=== PATIENT | female | born 1980 | race African-American/Black ===

== ENCOUNTER 2018-02-10 09:08 | Emergency (ER) | payer SELFPAY ==
[~2018-02-10] VITALS: Ht 180.3 cm; Wt 97.0 kg
[2018-02-10 09:48] VITALS: BP 119/79
== END 2018-02-10 09:55 | disposition home or self-care (01) | DRG 605 ==
LOC: ED 09:08
PROC: 0HQ1XZZ Repair Face Skin, External Approach (ICD-10-PCS; principal; 2018-02-10)
DX: S01.81XA Laceration without foreign body of other part of head, initial encounter (principal); W26.8XXA Contact with other sharp object(s), not elsewhere classified, initial encounter; Y93.E9 Activity, other interior property and clothing maintenance; Y92.009 Unspecified place in unspecified non-institutional (private) residence as the place of occurrence of the external cause

== ENCOUNTER 2018-02-14 19:50 | Emergency (ER) | payer OTHER ==
[~2018-02-14] VITALS: Ht 180.3 cm; Wt 102.2 kg
[2018-02-14 20:37] LABS: URINE BILIRUBIN - DIPSTICK NEGATIVE (NEGATIVE); URINE BLOOD DIPSTICK LARGE (NEGATIVE); URINE GLUCOSE - DIPSTICK NEGATIVE (NEGATIVE); URINE KETONE 15 mg/dL (NEGATIVE); URINE PROTEIN - DIPSTICK >=300 mg/dL (NEG-TRACE)
[2018-02-14 20:39] LABS: URINE CLARITY TURBID; URINE LEUK ESTERASE MODERATE (NEGATIVE); URINE NITRITE - DIPSTICK POSITIVE (Negative)
[2018-02-14 20:40] LABS: URINE RBC TNTC RBC/hpf (0-5)
[2018-02-14 20:41] LABS: URINE COLOR BLOODY; URINE SQUAMOUS EPITHELIAL CELL FEW EPI/hpf (0-FEW)
[2018-02-14 23:00] VITALS: BP 133/80
[2018-02-14] MEDS ORDERED: ULTRAM50 M1 PO (23:03)
[2018-02-14] MEDS ORDERED: FLEXERIL PO (23:03)
== END 2018-02-14 23:15 | disposition home or self-care (01) | DRG 552 ==
LOC: ED 19:50
PROVIDERS: Emergency Medicine
DX: M51.9 Unspecified thoracic, thoracolumbar and lumbosacral intervertebral disc disorder (principal); F17.210 Nicotine dependence, cigarettes, uncomplicated; M54.5 Low back pain; W19.XXXA Unspecified fall, initial encounter; Y92.410 Unspecified street and highway as the place of occurrence of the external cause

== ENCOUNTER 2018-07-18 18:42 | Emergency (ER) | payer MEDICAID ==
[~2018-07-18] VITALS: Ht 180.3 cm; Wt 99.0 kg
[~2018-07-18 18:42] MED LIST: FLEXERIL PO; TYLENOL500 MG PO; ULTRAM50 M1 PO; VOLTAREN1%GEL TOP
[2018-07-18 19:46] LABS: URINE BILIRUBIN - DIPSTICK NEGATIVE (NEGATIVE); URINE BLOOD DIPSTICK NEGATIVE (NEGATIVE); URINE COLOR YELLOW; URINE GLUCOSE - DIPSTICK NEGATIVE (NEGATIVE); URINE KETONE NEGATIVE (NEGATIVE); URINE PROTEIN - DIPSTICK NEGATIVE (NEG-TRACE); URINE SPECIFIC GRAVITY >=1.030
[2018-07-18 19:47] LABS: URINE CLARITY SL CLOUDY; URINE LEUK ESTERASE SMALL (NEGATIVE); URINE NITRITE - DIPSTICK POSITIVE (Negative)
[2018-07-18 19:55] LABS: URINE SQUAMOUS EPITHELIAL CELL MANY EPI/hpf (0-FEW)
[2018-07-18 19:56] LABS: URINE BACTERIA RARE hpf
[2018-07-18 20:08] LABS: INFLUENZA A NONE DETECTED (NONE DETECT); INFLUENZA B NONE DETECTED (NONE DETECT)
[2018-07-18] MEDS ORDERED: ROBITUSSIN AC10 ML PO (20:22)
[2018-07-18] MEDS ORDERED: CEPHALEXIN500 M1 PO (20:22)
[2018-07-18 20:40] VITALS: BP 129/71
== END 2018-07-18 20:40 | disposition home or self-care (01) ==
LOC: ED 18:42
PROVIDERS: Emergency Medicine
DX: J06.9 Acute upper respiratory infection, unspecified (principal); N39.0 Urinary tract infection, site not specified; F17.210 Nicotine dependence, cigarettes, uncomplicated; B96.20 Unspecified Escherichia coli [E. coli] as the cause of diseases classified elsewhere; R05 Cough; J02.9 Acute pharyngitis, unspecified; R06.7 Sneezing

== ENCOUNTER 2018-11-11 19:37 | Emergency (ER) | payer OTHER ==
[~2018-11-11] VITALS: Ht 180.3 cm; Wt 107.0 kg
[~2018-11-11 19:37] MED LIST changes: +CEPHALEXIN500 M1 PO; +ROBITUSSIN AC10 ML PO
[2018-11-11 20:24] LABS: URINE BILIRUBIN - DIPSTICK NEGATIVE (NEGATIVE); URINE BLOOD DIPSTICK LARGE (NEGATIVE); URINE GLUCOSE - DIPSTICK NEGATIVE (NEGATIVE); URINE KETONE TRACE mg/dL (NEGATIVE); URINE LEUK ESTERASE NEGATIVE (NEGATIVE); URINE PROTEIN - DIPSTICK 100 mg/dL (NEG-TRACE); URINE SPECIFIC GRAVITY >=1.030
[2018-11-11 20:26] LABS: URINE COLOR ORANGE; URINE NITRITE - DIPSTICK POSITIVE (Negative)
[2018-11-11 20:30] LABS: HEMATOCRIT 36.7 % (37.0-47.0); HEMOGLOBIN 11.6 g/dl (12.0-16.0); IMMATURE GRANULOCYTES 0.3 % (0.0-5.0); MEAN CELL VOLUME 90.8 fL CALC (80.0-100.0); MEAN CORPUSCULAR HGB 28.7 pG CALC (26.0-32.0); MEAN CORPUSCULAR HGB CONC 31.6 g/L CALC (32.0-36.0); NEUT# 3.14 thou/uL (2.00-7.15); RED BLOOD COUNT 4.04 mill/uL (4.20-5.60); RED CELL DISTRI WIDTH 12.6 % (11.5-15.5)
[2018-11-11 20:34] LABS: URINE BACTERIA FEW hpf; URINE RBC TNTC RBC/hpf (0-5); URINE SQUAMOUS EPITHELIAL CELL FEW EPI/hpf (0-FEW)
[2018-11-11 20:40] LABS: ALBUMIN 4.9 g/dL (3.2-5.0); ALKALINE PHOSPHATASE 66 u/l (38-126); ANION GAP 16 (6-22 (CALC)); BILIRUBIN, TOTAL 0.3 mg/dL (0.0-1.4); BUN 15 mg/dL (7-17); BUN/CREATININE RATIO 22 (12-20 (CALC)); CARBON DIOXIDE 25 mmol/l (22-30); CHLORIDE 101 mmol/l (95-108); CREATININE 0.7 mg/dL (0.5-1.0); GFR > 60 ML/MIN (>=60 (CALC)); GFR FOR AFR.AMER. > 60 ML/MIN (>=60 (CALC)); POTASSIUM 3.7 mmol/l (3.5-5.1); SGOT/AST 43 u/l (14-36); SODIUM 138 mmol/l (137-146); TOTAL PROTEIN 8.7 g/dL (6.3-8.2)
[2018-11-11 20:56] LABS: BETA-HCG, QUANT(RESULT NUMBER) 12598 mIU/mL
[2018-11-11 21:50] VITALS: BP 112/65
== END 2018-11-11 21:49 | disposition home or self-care (01) ==
LOC: ED 19:37
DX: O20.9 Hemorrhage in early pregnancy, unspecified (principal); O99.331 Smoking (tobacco) complicating pregnancy, first trimester; F17.200 Nicotine dependence, unspecified, uncomplicated; Z3A.08 8 weeks gestation of pregnancy

== ENCOUNTER 2018-11-13 01:37 | Emergency (ER) | payer OTHER ==
[~2018-11-13] VITALS: Ht 180.3 cm; Wt 106.8 kg
[2018-11-13 02:12] LABS: IMMATURE GRANULOCYTES 0.4 % (0.0-5.0); MEAN CELL VOLUME 89.7 fL CALC (80.0-100.0); MEAN CORPUSCULAR HGB 28.2 pG CALC (26.0-32.0); MEAN CORPUSCULAR HGB CONC 31.4 g/L CALC (32.0-36.0); NEUT# 3.34 thou/uL (2.00-7.15); RED BLOOD COUNT 3.9 mill/uL (4.20-5.60); RED CELL DISTRI WIDTH 12.8 % (11.5-15.5)
[2018-11-13 02:25] LABS: ALBUMIN 4.3 g/dL (3.2-5.0); ALKALINE PHOSPHATASE 59 u/l (38-126); ANION GAP 14 (6-22 (CALC)); BILIRUBIN, TOTAL 0.3 mg/dL (0.0-1.4); BUN 15 mg/dL (7-17); BUN/CREATININE RATIO 20 (12-20 (CALC)); CARBON DIOXIDE 24 mmol/l (22-30); CHLORIDE 104 mmol/l (95-108); CREATININE 0.8 mg/dL (0.5-1.0); GFR > 60 ML/MIN (>=60 (CALC)); GFR FOR AFR.AMER. > 60 ML/MIN (>=60 (CALC)); POTASSIUM 4.3 mmol/l (3.5-5.1); SGOT/AST 26 u/l (14-36); SODIUM 138 mmol/l (137-146); TOTAL PROTEIN 7.7 g/dL (6.3-8.2)
[2018-11-13 02:41] LABS: BETA-HCG, QUANT(RESULT NUMBER) 11335 mIU/mL
[2018-11-13 03:54] VITALS: BP 103/68
[2018-11-13 04:30] VITALS: BP 88/60
[2018-11-13 04:37] VITALS: BP 88/60
[2018-11-24] MEDS ORDERED: PERCOCET 5/325M1 TAB PO (22:13)
[2018-11-24] MEDS ORDERED: AMOXICILLIN500 MG PO (22:13)
[2018-11-24] MEDS ORDERED: IBUPROFEN600 MG PO (22:13)
== END 2018-11-13 04:37 ==
LOC: ED 01:37
PROVIDERS: Emergency Medicine
DX: O03.9 Complete or unspecified spontaneous abortion without complication (principal); F17.210 Nicotine dependence, cigarettes, uncomplicated
CPT/HCPCS: P9016

== ENCOUNTER 2018-11-16 06:56 | Emergency (ER) | payer OTHER ==
[~2018-11-16] VITALS: Ht 180.3 cm; Wt 110.0 kg
[2018-11-16 07:35] LABS: IMMATURE GRANULOCYTES 0.9 % (0.0-5.0); MEAN CELL VOLUME 91.9 fL CALC (80.0-100.0); MEAN CORPUSCULAR HGB 29.4 pG CALC (26.0-32.0); MEAN CORPUSCULAR HGB CONC 31.9 g/L CALC (32.0-36.0); NEUT# 4.43 thou/uL (2.00-7.15); RED BLOOD COUNT 2.35 mill/uL (4.20-5.60); RED CELL DISTRI WIDTH 13.9 % (11.5-15.5)
[2018-11-16 07:41] LABS: HEMATOCRIT 21.6 % (37.0-47.0); HEMOGLOBIN 6.9 g/dl (12.0-16.0)
[2018-11-16 07:47] LABS: ANION GAP 10 (6-22 (CALC)); BUN 15 mg/dL (7-17); BUN/CREATININE RATIO 25 (12-20 (CALC)); CARBON DIOXIDE 24 mmol/l (22-30); CHLORIDE 108 mmol/l (95-108); CREATININE 0.6 mg/dL (0.5-1.0); GFR > 60 ML/MIN (>=60 (CALC)); GFR FOR AFR.AMER. > 60 ML/MIN (>=60 (CALC)); SODIUM 139 mmol/l (137-146)
[2018-11-16 07:48] LABS: POTASSIUM 3.4 mmol/l (3.5-5.1)
[2018-11-16 08:45] VITALS: BP 117/70
[2018-11-16 09:00] VITALS: BP 114/67
[2018-11-16 09:15] VITALS: BP 112/67
[2018-11-16 10:00] VITALS: BP 101/68
[2018-11-16 10:15] VITALS: BP 102/67
[2018-11-24] MEDS ORDERED: PERCOCET 5/325M1 TAB PO (22:13)
[2018-11-24] MEDS ORDERED: AMOXICILLIN500 MG PO (22:13)
[2018-11-24] MEDS ORDERED: IBUPROFEN600 MG PO (22:13)
== END 2018-11-16 10:20 | disposition home or self-care (01) ==
LOC: ED 06:56
PROVIDERS: Family Medicine
DX: D64.9 Anemia, unspecified (principal); G43.909 Migraine, unspecified, not intractable, without status migrainosus; R53.83 Other fatigue; F17.200 Nicotine dependence, unspecified, uncomplicated; R11.0 Nausea
CPT/HCPCS: P9016

== ENCOUNTER 2024-09-19 07:27 | Emergency (ER) | payer OTHER ==
[~2024-09-19] VITALS: Ht 180.3 cm; Wt 118.0 kg
[2024-09-19] VITALS (24 sets, daily range): BP systolic 109–148; BP diastolic 65–102
[~2024-09-19 07:27] MED LIST changes: +AMOXICILLIN500 MG PO; +BACTRIM DS1 TAB PO; +IBUPROFEN600 MG PO; +LORTAB 5/3255 MG PO; +PAXLOVID PO; +PERCOCET 5/321 COMBO PO; +PERCOCET 5/325M1 TAB PO
[2024-09-19] MEDS ORDERED: ASPIRIN 81 MG/TAB PO ONE (07:35)
[2024-09-19] MEDS ORDERED: SODIUM CHLORIDE 0.9% 1,000 ML IV ONE (07:40)
[2024-09-19] MEDS ORDERED: ADENOSINE 6MG (3 MG/ML) SYR IV ONE (07:45)
[2024-09-19] MEDS ORDERED: ONDANSETRON HCl 4 MG/2 ML SDV IV ONE (07:45)
[2024-09-19 07:56] LABS: BASO% 0.3 % (0-3); EOS% 2.2 % (0-8); IMMATURE GRANULOCYTES 0.2 % (0.0-5.0); LYMPH% 29.7 % (15-41); MEAN CELL VOLUME 89.2 fL CALC (80.0-100.0); MEAN CORPUSCULAR HGB 28.9 pG CALC (26.0-32.0); MEAN CORPUSCULAR HGB CONC 32.4 g/dL CAL (32.0-36.0); MONO% 6.9 % (2-13); NEUT# 3.59 thou/uL (2.00-7.15); NEUT% 60.7 % (42-76); RED BLOOD COUNT 5.02 mill/uL (4.20-5.60); RED CELL DISTRI WIDTH 12.6 % (11.5-15.5)
[2024-09-19 08:05] LABS: HEMATOCRIT 44.8 % (37.0-47.0); HEMOGLOBIN 14.5 g/dl (12.0-16.0)
[2024-09-19 08:26] LABS: ALBUMIN 4.6 g/dL (3.2-5.0); ALKALINE PHOSPHATASE 93 u/l (38-126); ANION GAP 16 (6-22 (CALC)); BILIRUBIN, TOTAL 0.6 mg/dL (0.02-1.3); BUN 11 mg/dL (7-17); BUN/CREATININE RATIO 16 (12-20 (CALC)); CARBON DIOXIDE 22 mmol/l (22-30); CHLORIDE 104 mmol/l (95-108); CREATININE 0.7 mg/dL (0.5-1.0); ESTIMATED GFR 108 ML/MIN (>=90 (CALC)); POTASSIUM 3.8 mmol/l (3.5-5.1); SGOT/AST 34 u/l (14-36); SODIUM 138 mmol/l (137-146); TOTAL PROTEIN 8.7 g/dL (6.3-8.2)
== END 2024-09-19 12:40 | disposition home or self-care (01) ==
LOC: ED 07:27
PROVIDERS: Family Medicine
DX: K52.9 Noninfective gastroenteritis and colitis, unspecified (principal); I47.10 Supraventricular tachycardia, unspecified; F17.200 Nicotine dependence, unspecified, uncomplicated
CPT/HCPCS: J2405